=== PATIENT | female | born 1975 | race Caucasian/White ===

== ENCOUNTER 2021-06-27 09:15 | Outpatient (CLI) | payer BC ==
[2021-06-27 23:40] LABS: SARS-CoV-2 PCR by NAA Not Detected (NotDetected)
== END 2021-06-27 09:16 | disposition home or self-care (01) ==
LOC: CSHLAB 09:15
PROVIDERS: ATTEND Advanced Practice Midwife
DX: Z20.822 Contact with and (suspected) exposure to COVID-19 (principal)
CPT/HCPCS: U0003; U0005

== ENCOUNTER 2023-12-14 14:07 | Outpatient (CLI) | payer BC | END 2023-12-14 14:08 | disposition home or self-care (01) | LOC: CSHMAMMO 14:07 | PROVIDERS: ATTEND Nurse Practitioner Family | DX: Z12.31 Encounter for screening mammogram for malignant neoplasm of breast (principal) | CPT/HCPCS: 77063; 77067 ==